=== PATIENT | female | born 1980 | race Two or more races ===

== ENCOUNTER 2022-03-10 16:43 | Emergency (ER) | payer MEDICAID ==
[~2022-03-10] VITALS: Ht 157.5 cm; Wt 63.5 kg
[2022-03-10 16:50] VITALS: BP_SYST 123
[2022-03-10] MEDS ORDERED: AMOX-423 PO (17:36)
[2022-03-10] MEDS ORDERED: DIPHTH,PERTUSS(ACELL),TET VAC 0.5 ML VIAL (Tdap) I.M. ONE (17:45)
[2022-03-10] MEDS ORDERED: BACITRACIN 1 GM OINT TP ONE (17:45)
[2022-03-10 17:53] VITALS: BP_SYST 121
== END 2022-03-10 17:53 | disposition home or self-care (01) ==
LOC: SED 16:43
DX: S81.831A Puncture wound without foreign body, right lower leg, initial encounter (principal); Z79.899 Other long term (current) drug therapy; W54.0XXA Bitten by dog, initial encounter; Y93.89 Activity, other specified; Y92.89 Other specified places as the place of occurrence of the external cause; Y99.8 Other external cause status
CPT/HCPCS: 90715; 99283